=== PATIENT | female | born 1955 | race Caucasian/White ===

== ENCOUNTER → 2024-03-17 09:45 | Outpatient (REF) | payer OTHER, SELFPAY | LOC: RAD 09:45 | PROVIDERS: ATTENDING PHYSICIAN Internal Medicine Rheumatology; FAMILY PHYSICIAN Family Medicine | DX: M85.89 Other specified disorders of bone density and structure, multiple sites (principal); Z13.820 Encounter for screening for osteoporosis | CPT/HCPCS: 36415; 77080; 77081 ==

== ENCOUNTER → 2024-10-22 07:28 | Outpatient (REF) | payer OTHER, SELFPAY | LOC: WDC 07:28 | PROVIDERS: ATTENDING PHYSICIAN Family Medicine | DX: Z12.31 Encounter for screening mammogram for malignant neoplasm of breast (principal) | CPT/HCPCS: 77063; 77067 ==

== ENCOUNTER → 2024-10-22 07:52 | Outpatient (REF) | payer OTHER, SELFPAY | LOC: RCS 07:52 | PROVIDERS: ATTENDING PHYSICIAN Orthopaedic Surgery | DX: Z01.818 Encounter for other preprocedural examination (principal) | CPT/HCPCS: 93005 ==

== ENCOUNTER → 2025-10-25 07:09 | Outpatient (REF) | payer OTHER, SELFPAY | LOC: WDC 07:09 | PROVIDERS: ATTENDING PHYSICIAN Student in an Organized Health Care Education/Training Program | DX: Z12.31 Encounter for screening mammogram for malignant neoplasm of breast (principal) | CPT/HCPCS: 77063; 77067 ==